=== PATIENT | female | born 1975 | race Caucasian/White ===

== ENCOUNTER 2016-08-24 11:14 | Emergency (ER) | payer OTHER ==
[2016-08-24 11:26] VITALS: BP 113/81
[2016-08-24] MEDS ORDERED: KETOROLAC TROMETHAMINE 60 MG/2 ML VIAL IM ONE ×2 (11:39→11:50)
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
--- OUTSIDE RECORDS SUMMARY | 2016-08-24 12:40 | XMS REPORT | Continuity of Care Document ---
:1975 Author Organization [facility] ([facility]) Address [address] [place] [address] Phone [phone] Care Team Providers Name Role Phone Provider, No-Primary Care Primary Care Provider Unavailable Source Comments This disclosure is being made pursuant to the Care Everywhere program, applicable federal and state laws, and may not contain all informaitonavailable regarding this patient.[facility] ([facility]) Active Allergies and Adverse Reactions No Known Allergies Current Medications Prescription Sig. Disp. Refills Start Date End Date Status METHOCARBAMOL (ROBAXIN PO) Take by mouth. Active FLUOXETINE HCL (PROZAC PO) Take by mouth. Active HYDROcodone-acetaminophen Take 1-2 Tabs by 30 Tab 0 09/27/2011 Active 5-325 mg per tablet mouth every 6 hours as needed. Indications: Pain cyclobenzaprine 10 mg Take 1 Tab by 30 Tab 0 02/05/2012 Active tablet mouth at bedtime as needed. Indications: back pain and to assist with sleep sulindac 200 mg tablet Take 1 Tab by 60 Tab 1 02/05/2012 Active mouth 2 times daily. Indications: back pain meloxicam 15 mg tablet Take 1 Tab by 20 Tab 0 05/08/2012 Active mouth daily. Indications: Back pain cyclobenzaprine 10 mg Take 1 Tab by 40 Tab 0 05/08/2012 Active tablet mouth 2 times daily as needed. Indications: MUSCLE SPASM Active Problems Problem Noted Date Physical therapy 04/10/2011 Back pain 03/19/2011 Abdominal pain, unspecified site 10/05/2008 Social History Tobacco Use Types Packs/Day Years Used Date Current Every Day Smoker Cigarettes 1.5 12 Smokeless Tobacco: Never Used Tobacco Cessation:Ready to Quit: No; Counseling Given: Yes Comments: Alcohol Use Drinks/Week oz/Week Comments Yes occassional Last Filed Vital Signs Vital Sign Reading Time Taken Blood Pressure 123/75 05/08/2012 6:33 AM [employer] Pulse 88 05/08/2012 6:33 AM [employer] Temperature 36.5 C (97.7 F) 05/08/2012 6:33 AM [employer] Respiratory Rate 12 05/08/2012 6:33 AM [employer] Height 1.575 m (5' 2") 05/08/2012 6:33 AM [employer] Weight 77.111 kg (170 lb) 05/08/2012 6:33 AM [employer] Body Mass Index 31.09 05/08/2012 6:33 AM [employer] Oxygen Saturation 97% 05/08/2012 6:33 AM [employer] Plan of Care Health Maintenance Due Date Last Done Comments Hepatitis B Vaccine (1 of 3 - Primary Series) 1974 Tdap Vaccine 1985 Lipid Disorder Screening 1992 MMR Vaccine 1992 Td Vaccine 1992 Pneumococcal Vaccine (1 of 1 - PPSV23) 1993 Cervical Cancer Screening 2004 Mammogram 2014 Influenza Vaccine: Seasonal (#1) 01/30/2016 Results from Last 3 Months Not on file
[2016-08-24 13:26] LABS: Cocaine Ur Negative (NEGATIVE); Urine Barbiturate Negative (NEGATIVE); Urine Benzodiazepines Positive (NEGATIVE); Urine Opiates Negative (NEGATIVE); Urine PCP Negative (NEGATIVE); Urine THC Negative (NEGATIVE)
== END 2016-08-24 14:25 ==
LOC: ER 11:14
DX: S42.034A Nondisplaced fracture of lateral end of right clavicle, initial encounter for closed fracture (principal); Z72.0 Tobacco use; Y04.2XXA Assault by strike against or bumped into by another person, initial encounter